=== PATIENT | male | born 1980 | race Caucasian/White ===

== ENCOUNTER → 2022-04-25 | Outpatient (REF) | payer OTHER | LOC: M SMT 13:32 | PROVIDERS: ATTEND Urology | DX: Z30.2 Encounter for sterilization (principal) ==

== ENCOUNTER → 2022-06-26 | Outpatient (REF) | payer OTHER ==
[2022-06-26 13:55] LABS: SEMEN APPEARANCE OPAQUE (OPAQUE); SEMEN VISCOSITY LIQUID (LIQUID); SEMEN VOLUME 2.3 ml (2.0-5.0); WBC CONCENTRATION >1 M/ml (<=1 M/ml)
== END ==
LOC: M SMT 13:28
PROVIDERS: ATTEND Urology
DX: Z30.2 Encounter for sterilization (principal)